=== PATIENT | male | born 1995 | race Two or more races ===

== ENCOUNTER 2022-12-10 22:48 | Emergency (ER) | payer OTHER ==
[~2022-12-10] VITALS: Ht 188 cm; Wt 86.2 kg
[2022-12-10] MEDS ORDERED: DEXTROAMP-AMPHE10 MG (23:13)
[2022-12-10] MEDS ORDERED: ADZENYS XR-OD15.7 MG (23:14)
[2022-12-10] MEDS ORDERED: ALL DAY ALLERGY10 M3 (23:14)
== END 2022-12-11 | disposition left against medical advice (07) ==
LOC: ER 22:48
DX: R53.81 Other malaise (principal); Z88.6 Allergy status to analgesic agent